=== PATIENT | female | born 1970 | race Caucasian/White ===

== ENCOUNTER 2016-08-22 13:08 | Emergency (ER) | payer OTHER, SELFPAY ==
[~2016-08-22] VITALS: Ht 152.4 cm; Wt 108.2 kg
[2016-08-22 13:10] VITALS: BP 137/67
[2016-08-22] MEDS ORDERED: NORCO, ANEXSIA 5/325MG TABLET (HYDROcodone/ACETAMINOPHEN) PO ONE (13:45)
[2016-08-22] MEDS ORDERED: KETOROLAC 60 MG/2 ML VIAL (J1885) IM ONE (13:45)
--- NOTE | 2016-08-22 15:06 | REP ---
LEFT KNEE, FIVE VIEWS: HISTORY: Pain. There is no acute fracture or dislocation. The joint spaces are normal in appearance. A bone island is present in the proximal tibia. IMPRESSION: There is no acute fracture or dislocation. Signed by Dino Hicks MD 08/22/2016 03:07 P
== END 2016-08-22 14:51 | disposition home or self-care (01) ==
LOC: M ED 13:08
DX: S83.422A Sprain of lateral collateral ligament of left knee, initial encounter (principal); X50.1XXA Overexertion from prolonged static or awkward postures, initial encounter; Y92.22 Religious institution as the place of occurrence of the external cause; Y93.01 Activity, walking, marching and hiking; Y99.9 Unspecified external cause status
CPT/HCPCS: 73564; 96372; 99283; J1885

== ENCOUNTER → 2021-12-14 | Outpatient (CLI) | payer SELFPAY ==
[~2021-12-14] MED LIST: D400400C PO; METF-838 PO; VALS1TAB66 PO; VITMTA PO
== END ==
LOC: M LABSMTC 10:02
PROVIDERS: ATTEND Anesthesiology
DX: Z01.812 Encounter for preprocedural laboratory examination (principal); Z20.822 Contact with and (suspected) exposure to COVID-19

== ENCOUNTER 2021-12-15 06:25 | Day surgery (SDC) | payer SELFPAY ==
[~2021-12-15] VITALS: Ht 152.4 cm; Wt 111.9 kg
[~2021-12-15 06:25] MED LIST changes: +PROPARACAINE 0.5% OPHTH SOL 15ML OD ONE
[2021-12-15] MEDS ORDERED: LIDOCAINE 1% 1ML PF SYRINGE (OR EYE CASES) As Ordered ONE (06:39)
[2021-12-15] MEDS ORDERED: BSS IRR 500ML/OMIDRIA 4ML IRR BAG (OR ONLY) As Ordered ONE (06:40)
[2021-12-15] MEDS ORDERED: CEFUROXIME 1MG/0.1ML INTRACAMERAL INJ As Ordered ONE (06:40)
[2021-12-15] MEDS ORDERED: fentaNYL 100 MCG/2 ML INJECTION As Ordered ONE (07:07)
[2021-12-15] MEDS ORDERED: MIDAZOLAM INJ 2MG/2ML VIAL (J2250 PER 1MG) As Ordered ONE (07:08)
[2021-12-15] MEDS: PHENYLEPHRINE 2.5% OPHTH SOL 2ML OD SCH ×3 (07:09→07:18)
[2021-12-15] MEDS: OFLOXACIN 0.3 % (OCUFLOX) OPTH SOL 5ML OD SCH ×3 (07:09→07:19)
[2021-12-15] MEDS: CYCLOPENTOLATE 1% OPHTH SOLN 2 ML BTL OD SCH ×3 (07:09→07:18)
[2021-12-15] MEDS: TROPICAMIDE 1% OPHTH SOLN 2ML OD SCH ×3 (07:09→07:18)
[2021-12-15 08:55] VITALS: BP 130/77
== END 2021-12-15 09:09 | disposition home or self-care (01) ==
LOC: M SDC 06:25
PROVIDERS: ATTEND Ophthalmology
DX: H25.11 Age-related nuclear cataract, right eye (principal); E11.9 Type 2 diabetes mellitus without complications; Z79.899 Other long term (current) drug therapy; Z79.84 Long term (current) use of oral hypoglycemic drugs
CPT/HCPCS: 66984; J0697; J1097; J2250; J3010